=== PATIENT | male | born 1990 | race Hispanic/Latino ===

== ENCOUNTER 2025-01-09 21:10 | Emergency (ER) | payer OTHER ==
[~2025-01-09] VITALS: Ht 177.8 cm; Wt 79.4 kg
--- NOTE | 2025-01-09 21:26 | EKG ---
[facility] Test Date: 2025-01-09 Test Time: 21:07:12 Pat Name: JANINE BROWN Department: ED Room: Gender: M Instrument [employer]: [id number] : 1990 Requested By: CHRISTY JORDAN Order Number: [id number] Reading MD: Ariana Buchanan Measurements Intervals [place] Rate: 104 P: 51 IA: 118 QRS: 1 QRSD: 100 T: 3 QT: 352 QTc: 464 Interpretive Statements Sinus tachycardia No previous ECG available for comparison Electronically Signed On 01-10-2025 08:29:03 CDT by Ariana Buchanan Please click the below link to view image of tracing.
[2025-01-09 21:31] LABS: IMMATURE GRANULOCYTE ABSOLUTE 0.02 K/uL (0-1); NUCLEATED RED BLOOD CELLS 0.0 % (0.0-0.19); PLATELET COUNT (AUTO) 330 K/uL (130-400); RED BLOOD CELL COUNT(AUTO) 5.22 MIL/uL (4.50-6.20); RED CELL DISTRIBUTION WIDTH 12.1 % (11.0-15.5); WHITE BLOOD COUNT (AUTO) 6.9 K/uL (4.8-10.8)
[2025-01-09 21:39] LABS: CREATININE 0.8 mg/dL (0.5-1.3); GLOMERULAR FILTR. RATE CALC 120.0 mL/min (>90); GLUCOSE,RANDOM 91.0 mg/dL (70-105); SODIUM SERUM 134.0 mmol/L (136-145); UREA NITROGEN, BLOOD 9.0 mg/dL (7-18)
--- NOTE | 2025-01-09 21:45 | ERN ---
General Chief Complaint: Chest Pain Stated Complaint: CHEST PAIN Time Seen by MD: 21:12 Time Seen by Midlevel: 21:12 Source: patient, police ([employer] ) History of Present Illness Initial Comments Patient is a 34-year-old male being brought in by [employer] for evaluation of chest pain. The patient has been in custody since 11:00 a.m. today January 09, 2025. He developed chest pain prior to arrival. Denies any drug use. Denies any medical problems. Denies taking any medications on a daily basis. He specifically denies any alcohol and drug use Allergies: Coded Allergies: No Known Allergies (Unverified Allergy, Unknown, 01/09/25) Past Medical History Past Medical History: No Pertinent History Past Surgical History: None ROS Dictation CONSTITUTIONAL: Negative except for HPI HEAD/FACE: Negative except for HPI EENT: Negative except for HPI RESPIRATORY: Negative except for HPI GASTROINTESTINAL/ABDOMINAL: Negative except for HPI GENITOURINARY: Negative except for HPI MUSCULOSKELETAL: Negative except for HPI INTEGUMENTARY: Negative except for HPI NEUROLOGICAL/PSYCH: Negative except for HPI HEMATOLOGIC/LYMPHATIC: Negative except for HPI All Systems Negative, Except as noted above. 13 point review of systems assessed and all negative except for above. Physical Exam Physical Exam Dictation Vital Signs reviewed General Appearance: Alert, oriented x 3, no acute distress, well developed, nourished. Head and Face: non-traumatic. Eyes: PERRL, pink conjunctivas, eyelid no trauma, anterior chamber with arcus senilis. Ears: Pinnas intact and no signs of trauma or erythema ear canals clear and no discharge TM no erythema Nose: No discharge, no bleeding. Oropharynx: Mouth normal, tongue pink, pharynx clear,no erythema, tonsils no exudates, no abscesses noted, mucous membrane moist Neck: Supple, non-tender, no thyromegaly, no masses, no JVD, no bruits Breast:Deferred Chest:No tenderness, no crepitus, no paradoxical movement, no retractions Lungs:Clear, well-ventilated, symmetric, no rales, no wheezing, no rhonchi, no stridor, good breath sounds bilaterally Heart: Regular rate, regular rhythm, no murmur, no gallops Vascular: no peripheral edema, Abdomen: Soft, positive bowel sounds, nondistended, no guarding, nontender, no rebound, no masses no hepatomegaly, no splenomegaly, no Desai's sign, no hernias. Rectal: Deferred Genital: Deferred Neurological: Normal speech, motor function intact, sensory function intact Musculoskeletal: Neck nontender, full range of motion, back nontender, full range of motion, Extremities: nontender, full range of motion Skin: Color pink, dry, no turgor, no rash, no lacerations, no abrasions, no contusions. Lymphatic: Deferred Results Laboratory and Microbiology Lab and Micro Result Laboratory Tests Test 01/09/25 21:15 01/09/25 22:25 White Blood Count 6.9 K/uL (4.8-10.8) Red Blood Count 5.22 MIL/uL (4.50-6.20) Hemoglobin 16.1 g/dL (14.0-18.0) Hematocrit 45.0 % (42-54) Mean Corpuscular Volume 86.2 fL (79-99) Mean Corpuscular Hemoglobin 30.8 pg (27.0-33.0) Mean Corpuscular Hemoglobin Concent 35.8 g/dL (32.0-36.0) Red Cell Distribution Width 12.1 % (11.0-15.5) Platelet Count 330 K/uL (130-400) Mean Platelet Volume 10.1 fL (7.5-10.5) Immature Granulocyte % (Auto) 0.3 % (0-1) Neutrophils (%) (Auto) 59.4 % (40.0-77.0) Lymphocytes (%) (Auto) 25.7 % (21.0-51.0) Monocytes (%) (Auto) 9.9 % (3.0-13.0) Eosinophils (%) (Auto) 4.4 % (0.0-8.0) Basophils (%) (Auto) 0.3 % (0.0-5.0) Neutrophils # (Auto) 4.1 K/uL (1.8-7.7) Lymphocytes # (Auto) 1.8 K/uL (1.0-4.8) Monocytes # (Auto) 0.7 K/uL (0.1-1.0) Eosinophils # (Auto) 0.30 K/uL (0.00-0.70) Basophils # (Auto) 0.02 K/uL (0.00-0.20) Absolute Immature Granulocyte (auto 0.02 K/uL (0-1) Nucleated Red Blood Cells 0.0 % (0.0-0.19) Sodium Level 134 mmol/L (136-145) L Potassium Level 3.4 mmol/L (3.5-5.1) L Chloride Level 96 mmol/L (101-111) L Carbon Dioxide Level 29 mmol/L (21-32) Blood Urea Nitrogen 9 mg/dL (7-18) Creatinine 0.8 mg/dL (0.5-1.3) Glomerular Filtration Rate Calc 120 mL/min (>90) Random Glucose 91 mg/dL (70-105) Total Calcium 9.7 mg/dL (8.5-10.1) Magnesium Level 2.50 mg/dL (1.80-2.40) H Total Creatine Kinase 228 U/L (21-232) Troponin I High Sensitivity 7 ng/L (4-75) 6 ng/L (4-75) B-Type Natriuretic Peptide < 5 pg/mL (0-100) Serum Alcohol < 3 mg/dL (0-10) MDM MDM: 34-year-old male in [employer] custody evaluated for chest pain. Initially denied but later admitted to drug use. No past medical history and no daily medications. Patient remained hemodynamically stable and nontoxic throughout ED course. Cardiac workup including EKG in to see her troponins both negative. Chest x-ray and chemistries unremarkable. Given negative workup low suspicion for acute coronary syndrome or other emergent cardiopulmonary process. Chest pain likely substance related or noncardiac in origin. Patient discharged in stable condition With strict return precautions and recommendation for outpatient follow up. Differential diagnosis: Acute coronary syndrome, pneumonia, drug abuse, dehydration, electrolyte abnormality There are no social concerns with this patient. Prescription drug management Prescriptions will include: None Medical management and examination interpretation discussions were had by me with other qualified healthcare professionals as indicated for the patient's care. ED Course Orders Procedure Category Date Status Time 12 Lead Ekg Tracing- EKG 01/09/25 Complete Technical 21:13 B-Type Natriuretic LAB 01/09/25 Complete Peptide 21:18 Basic Metabolic Panel LAB 01/09/25 Complete 21:18 Cbc With Differential LAB 01/09/25 Complete 21:18 Creatine Kinase, Total LAB 01/09/25 Complete 21:18 Magnesium LAB 01/09/25 Complete 21:18 Drug Screen Urine LAB 01/09/25 Logged 21:18 Troponin I High LAB 01/09/25 Complete Sensitivity 21:18 Chest 1vw RAD 01/09/25 Resulted 21:18 Alcohol, Blood LAB 01/09/25 Complete 21:40 Troponin I High LAB 01/09/25 Complete Sensitivity 22:10 Vital Signs Date Time Temp Pulse Resp B/P (MAP) Pulse Ox O2 Delivery O2 Flow Rate FiO2 01/09/25 22:20 98.4 85 15 156/95 100 Room Air* 0 21 01/09/25 21:15 98.2 124 19 154/90 100 Room Air* 0 21 HEART Score Response (Comments) Value History: Low suspicion (0) 0 EKG: Normal 0 Age: < 45yrs (0) 0 Risk Factors: No known risk factors (0) 0 Initial Troponin: Normal limit (0) 0 HEART Score Risk: Low Risk for MACE (1-3) Total 0 DX & DISP Disposition: Discharge Departure Impression: Primary Impression: Non-cardiac chest pain Additional Impression: Medical clearance for incarceration Condition: Stable Time of Disposition: 23:29 I have reviewed the case, and I agree with, Diagnosis and Plan I performed the substantive portion of the visit. I have reviewed and personally made and approve the management plan that is documented in the note by myself or the UZAIR. I acknowledge for responsibility for the patient's management plan. TERI SANCHEZ Jan 09, 2025 21:45
[2025-01-09 21:56] LABS: CREATINE KINASE, TOTAL 228.0 U/L (21-232)
--- NOTE | 2025-01-09 23:03 | HMCIMG ---
EXAM: CR Chest, 1 view CLINICAL HISTORY: Chest pain. COMPARISON: None provided. FINDINGS: The lungs show no infiltrates or other acute findings. No pleural effusion or pneumothorax. The cardiomediastinal silhouette is within normal limits. No acute osseous abnormality. IMPRESSION: No acute cardiopulmonary process is evident. /[place]
[2025-01-09 23:25] VITALS: BP 152/89; PULSE 80; RESP 16; TEMP 98.2; O2SAT 100
== END 2025-01-09 23:39 ==
LOC: EDH 21:10 → EEVIPCON 21:10 → EDH 23:39
DX: R07.89 Other chest pain (principal)
CPT/HCPCS: 36415; 71045; 80048; 82550; 83735; 83880; 84484; 85025; 93005; 99285